=== PATIENT | female | born 1995 | race Caucasian/White ===

== ENCOUNTER 2016-09-19 10:40 | Emergency (ER) | payer BC, OTHER ==
[~2016-09-19 10:40] MED LIST: GUAI100S6 PO
[2016-09-19 10:43] VITALS: BP 131/98; PULSE 94; RESP 16; TEMP 98.3; O2SAT 99
[2016-09-19] MEDS ORDERED: PERM5CRE11 TOPICAL (11:52)
--- NOTE | 2016-09-19 11:54 | PD ---
HPI Chief Complaint: Skin Problem Time Seen by Provider: 11:51 Travel History International Travel<30 days: No Contact w/Intl Traveler<30days: No Traveled to known affect area: No History of Present Illness HPI 21-year-old female presents to the emergency Department with complaint of a rash to bilateral lower extremities, upper extremities, right hand, and bilateral groin area times one week. Rash is itchy. Denies fever, vomiting. Has tried Benadryl and other htgr-dwt-enuulus medications for symptom management. Denies new medications, foods, lotions, soaps, perfumes, environmental exposures. Has no known allergies. No one else with a rash. Has no medical complaints. No other modifying factors or associated signs and symptoms. [facility] Social History Alcohol Use: Yes Tobacco Use: Yes Substance Use: No Allergies-Medications (Allergen,Severity, Reaction): Coded Allergies: No Known Allergies (Unverified , 09/19/16) Reported Meds & Prescriptions Reported Meds & Active Scripts Active Elimite Topical (Permethrin) 5% Cream 1 Applic TOPICAL ONCE Robitussin Ac (Guaifenesin/Codeine Phosphate) Syrp 10 Ml PO Q6H PRN FOR COUGH Review of Systems Except as stated in HPI: all other systems reviewed are Neg Physical Exam Narrative GENERAL: Well-nourished, well-developed female patient, in no acute distress; afebrile, nontoxic-appearing SKIN: Warm and dry. Generalized erythremic pimple-like rash to bilateral lower extremities, bilateral upper extremities, right hand, bilateral groin area; some areas appear excoriated. No areas with cellulitic process noted. HEAD: Atraumatic. Normocephalic. EYES: Pupils equal and round. No scleral icterus. No injection or drainage. ENT: Mucosa pink and moist. Airway patent. NECK: Trachea midline. CARDIOVASCULAR: Regular rate. RESPIRATORY: No accessory muscle use. GASTROINTESTINAL: Flat. MUSCULOSKELETAL: No obvious deformities. No clubbing. No cyanosis. No edema. NEUROLOGICAL: Awake and alert. Oriented 3. No obvious cranial nerve deficits. Motor grossly within normal limits. Normal speech. PSYCHIATRIC: Appropriate mood and affect; insight and judgment normal. Data Data Last Documented VS Vital Signs Date Time Temp Pulse Resp B/P Pulse Ox O2 Delivery O2 Flow Rate FiO2 09/19/16 10:43 98.3 94 16 131/98 99 MDM Medical Decision Making Medical Screen Exam Complete: Yes Emergency Medical Condition: Yes Medical Record Reviewed: Yes Differential Diagnosis Scabies, contact dermatitis, nonspecific rash Narrative Course 21-year-old female physical exam consistent with possible scabies rash. She is afebrile and nontoxic-appearing. Elimite cream prescribed for home. Instructed patient to follow up with dermatology. Patient verbalizes understanding and agreement with treatment plan. Patient is medically cleared and stable for discharge. Discussed reasons to return to the emergency department. Instructed patient to follow up with primary care provider. Patient agrees with treatment plan. The patients vital signs are stable and the patient is stable for outpatient follow-up and treatment. Patient discharged home, stable and in no acute distress. Diagnosis Primary Impression: Rash and nonspecific skin eruption Referrals: Digital Asset Coordinator Primary Care Physician Patient Instructions: Acute Rash (ED), General Instructions, Scabies (ED) Departure Forms: Tests/Procedures, Work Release Enter return to work date: Sep 22, 2016 Additional Instructions: Elimite cream as directed; repeat in one week as needed Soaking in cool water or apply cool, wet washcloths to irritated areas to minimize itching Apply anti-itch creams, such as calamine lotion, to relieve pain and itching as needed [id number] antihistamines as needed and as directed to relieve allergic symptoms caused by scabies Wash all pillows, linens, blankets, etc. in hot water and dry in hot dryer Bag and all unwashable linens, [place] stuffed animals, etc. in a tightly sealed garbage bag for up to 2 weeks Follow-up with edge molder Follow-up with primary care provider Return to the emergency department immediately with worsening of symptoms Med/Other Pt SpecificInfo: Prescription(s) given Scripts Permethrin Topical (Elimite Topical)5% Cream1 Applic TOPICAL ONCE #1 TUBE Ref 1 Prov:Jimena Castro 09/19/16 Disposition: 01 DISCHARGE HOME Condition: Stable Jimena Castro Sep 19, 2016 11:54
== END 2016-09-19 12:12 | disposition home or self-care (01) ==
LOC: NEPD 10:40
DX: R21 Rash and other nonspecific skin eruption (principal); L29.9 Pruritus, unspecified; Z72.0 Tobacco use
CPT/HCPCS: 99283